=== PATIENT | male | born 1985 | race Caucasian/White ===

== ENCOUNTER 2020-02-14 02:29 | Inpatient (IN) | payer OTHER, BC ==
[~2020-02-14] VITALS: Ht 185.4 cm; Wt 94.8 kg
[~2020-02-14 02:29] MED LIST: HYDR1TAB94 PO
[2020-02-14 02:50] LABS: Source, Urine Clean Catch
[2020-02-14 02:52] LABS: Appearance, Urine Clear (Clear); Bilirubin, Urine Neg (Neg); Blood, Urine Neg (Neg); Color, Urine Amber (P-Yellow); Glucose Qualitative, Urine Neg (Neg); Ketones, Urine 1+ (Neg); Leukocyte Esterase, Urine 1+ (Neg); Nitrite, Urine Neg (Neg); Protein, Urine 2+ (Neg); Specific Gravity, Urine 1.015 (1.003-1.022); Urobilinogen, Urine 1+ (Normal)
[2020-02-14 02:58] LABS: White Blood Cells, Urine 0-2 /hpf (0-5)
[2020-02-14 02:59] LABS: Amorphous Light (0-Heavy); Bacteria Many /hpf; Mucus Mod (0-Heavy); Squamous Epithelial Cells Not Seen /hpf (Few)
[2020-02-14 03:08] LABS: BASOPHILS ABSOLUTE AUTO 0.03 K/mm3 (0.00-0.23); BASOPHILS PERCENT AUTO 0 % (0-2); EOSINOPHILS PERCENT AUTO 1 % (0-6); Hemoglobin 15.4 g/dL (13.5-17.5); IMMATURE GRAN ABSOLUTE AUTO 0.04 K/mm3 (0.00-0.10); IMMATURE GRAN PERCENT AUTO 0 % (0-1); LYMPHOCYTES ABSOLUTE AUTO 1.91 K/mm3 (0.84-5.20); LYMPHOCYTES PERCENT AUTO 16 % (21-46); MONOCYTES ABSOLUTE AUTO 0.93 K/mm3 (0.16-1.47); MONOCYTES PERCENT AUTO 8 % (4-13); Mean Corpuscular HGB 28.8 pg (26.0-34.0); Mean Corpuscular HGB Conc 34.2 g/dL (31.5-36.5); Mean Corpuscular Volume 84 fL (80-100); Mean Platelet Volume 9.1 fL (9.1-12.4); NEUTROPHILS ABSOLUTE AUTO 9.34 K/mm3 (1.96-9.15); NEUTROPHILS PERCENT AUTO 76 % (41-73); Platelet Count 219 K/mm3 (150-400); RDW Coefficient Variation 11.4 % (11.7-14.2); RDW Standard Deviation 34.8 fL (35.1-46.3); Red Blood Cell Count 5.35 M/mm3 (4.30-5.90); White Blood Cell Count 12.35 K/mm3 (4.00-11.30)
[2020-02-14 03:26] LABS: Alanine Aminotransfer (ALT/SGP 31 U/L (12-78); Albumin, Blood 4.5 g/dL (3.4-5.0); Albumin/Globulin Ratio 1.5 (0.8-1.8); Alk Phos 68 U/L (50-136); Anion Gap 5 mmol/L (6-16); Aspartate Aminotrans (AST/SGOT 28 U/L (12-37); Bilirubin, Total 0.7 mg/dL (0.1-1.0); Blood Urea Nitrogen 14 mg/dL (8-24); Bun/Creatinine Ratio 15.4 (12.0-20.0); CO2, Blood 28 mmol/L (21-32); Calcium, Blood 9.3 mg/dL (8.5-10.1); Chloride, Blood 107 mmol/L (98-108); Creatinine, Blood 0.91 mg/dL (0.60-1.20); Globulin, Blood 3.1 g/dL (2.2-4.0); Glomerular Filtration Rate >60 (60-); Glucose, Blood 113 mg/dL (70-99); Potassium, Blood 3.7 mmol/L (3.5-5.5); Sodium, Blood 140 mmol/L (136-145); Total Protein, Blood 7.6 g/dL (6.4-8.2)
--- NOTE | 2020-02-14 06:29 | NUR ---
SHIFT SUMMARY ASSUMED CARE OF PT AT 0524. PT IS ALERT AND ORIENTED. PT WAS VERY PAINFUL, PT MEDICATED WITH ONE TIMES DOSE OF MORPHINE. PT THEN VOMITED. PT IS INDEPENDENT IN ROOM. WILL CONTINUE TO MONITOR UNTIL DAYSHIFT NURSE ARRIVES.
--- NOTE | 2020-02-14 13:22 | NUR ---
Ambulatory in Day Surgery. Surgical site prepped with 2% Chlorhexidine cloth wipe. History, Chart, Medications and Allergies reviewed before start of procedure.Lungs clear T/O to Auscultation. Patient confirms NPO status and agrees with scheduled surgery. Pre-Op teaching done. Pt verbalizes understanding. [employer] P[employer] warming gown applied.
--- NOTE | 2020-02-14 14:48 | NUR ---
PATIENT WAS TAKEN DOWN FOR SURGERY AT APPROX 1300. PATIENT WILL BE TAKEN TO SURGICAL FLOOR AFTER PROCEDURE.
[2020-02-14] MEDS ORDERED: OXYC5 PO (18:41)
--- NOTE | 2020-02-14 18:42 | NUR ---
POST OP: TI RECIEVED REPORT FROM [facility]OOK, THIS RN RECEIVED REPORT FROM TI. PT TO ROOM AT ABOUT 1530. UPON ASSESSMENT PT IS IN NO VISABLE DISTRESS, A/O, VSS. SURGICAL SITES WNL. PT ABLE TO VOID AND AMBULATE IN THE HALLS
--- NOTE | 2020-02-14 19:07 | NUR ---
DISCHARGE: NO ACUTE CHANGE SINCE POST OP: PT ABLE TO TAKE IN PO, HAS DENIED N/V, PAIN. DENIES DIZZINESS WHEN WALKING. DISCHARGE PACKET PRINTED AND PT EDUCATED. IV DC'D BY TAYLER VILLARREAL. PT LEFT UNIT ON FOOT AT ABOUT 1830 WITH .
--- NOTE | 2020-02-15 09:40 | NUR ---
02/15/20 0940 Charisse Schrader VERIFICATIONS, AUDITS. DR. SCHMIDT ATTEMPTED CHOLANGIGRAM, UNABLE TO PENETRATE GALLBLADDER.
== END 2020-02-14 18:45 | disposition home or self-care (01) | DRG 418 ==
LOC: ER 02:29 → MEDS 04:42 → SURS 15:41
PROVIDERS: Student in an Organized Health Care Education/Training Program; Surgery; ADMIT Surgery
PROC: 0FT44ZZ Resection of Gallbladder, Percutaneous Endoscopic Approach (ICD-10-PCS; principal; 2020-02-14 12:30)
DX: K80.61 Calculus of gallbladder and bile duct with cholecystitis, unspecified, with obstruction (principal); K82.1 Hydrops of gallbladder; Z20.828 Contact with and (suspected) exposure to other viral communicable diseases; Z87.891 Personal history of nicotine dependence
CPT/HCPCS: 36415; 76705; 80053; 81001; 83690; 85025; 87086; 88304; 96374; 99285-25; C1729; J0295; J0690; J1100; J1170; J1885; J2250; J2270; J2405; J2704; J2710; J3010; J7030; J7120; U0003

== ENCOUNTER 2020-09-22 04:37 | Emergency (ER) | payer OTHER, BC ==
[~2020-09-22] VITALS: Ht 185.4 cm; Wt 94.3 kg
[~2020-09-22 04:37] MED LIST changes: +OXYC5 PO
[2020-09-23 07:07] LABS: HCV ANTIBODY <0.1 (0.0-0.9)
[2020-09-23 19:06] LABS: HIV SCREEN 4TH GENERATION WRFX Non Reactive (Non Reactive)
== END 2020-09-22 05:22 | disposition home or self-care (01) ==
LOC: ER 04:37
PROVIDERS: Emergency Medicine
DX: Z77.21 Contact with and (suspected) exposure to potentially hazardous body fluids (principal); Y92.89 Other specified places as the place of occurrence of the external cause; Y99.0 Civilian activity done for income or pay
CPT/HCPCS: 36415; 84460; 86317; 86803; 87389; 99282

== ENCOUNTER 2020-12-28 14:51 | Emergency (ER) | payer OTHER, BC ==
[~2020-12-28] VITALS: Ht 185.4 cm; Wt 97.5 kg
[2020-12-29 10:09] LABS: HCV ANTIBODY <0.1 (0.0-0.9)
[2020-12-30 07:09] LABS: HIV SCREEN 4TH GENERATION WRFX Non Reactive (Non Reactive)
== END 2020-12-28 15:28 | disposition home or self-care (01) ==
LOC: ER 14:51
PROVIDERS: Physician Assistant
DX: Z00.00 Encounter for general adult medical examination without abnormal findings (principal); T14.90XD Injury, unspecified, subsequent encounter; W27.3XXD Contact with needle (sewing), subsequent encounter
CPT/HCPCS: 84460; 86317; 86803; 87389; 99282

== ENCOUNTER → 2023-01-28 | Outpatient (CLI) | payer BC | LOC: LAB 09:08 → LAB SHORT 09:08 | DX: B35.4 Tinea corporis (principal) | CPT/HCPCS: 87102 ==

== ENCOUNTER 2023-11-08 05:49 | Emergency (ER) | payer OTHER, BC ==
[~2023-11-08] VITALS: Ht 188 cm; Wt 104.3 kg
[2023-11-08 06:11] VITALS: BP 119/80
== END 2023-11-08 06:34 | disposition home or self-care (01) ==
LOC: ER 05:49
DX: T14.8XXA Other injury of unspecified body region, initial encounter (principal); V49.9XXA Car occupant (driver) (passenger) injured in unspecified traffic accident, initial encounter
CPT/HCPCS: 99283

== ENCOUNTER 2023-11-09 12:47 | Emergency (ER) | payer OTHER, BC ==
[~2023-11-09] VITALS: Ht 185.4 cm; Wt 104.3 kg
[2023-11-09 13:02] VITALS: BP 124/74
== END 2023-11-09 13:16 | disposition home or self-care (01) ==
LOC: ER 12:47
DX: Z04.1 Encounter for examination and observation following transport accident (principal)
CPT/HCPCS: 99282